=== PATIENT | male | born 1940 | race Caucasian/White ===

== ENCOUNTER 2016-05-25 18:02 | Emergency (ER) | payer OTHER ==
[~2016-05-25 18:02] MED LIST: ALBUTEROL0.09 MG/A1 INH; ALBUTEROL0.63 MG/3 INH/SOL; BUDESONIDE0.25 MG/2 INH/SOL; CARVEDILOL12.5 MG PO; DIGOXIN0.125 MG PO; FUROSEMIDE40 MG PO; LOSARTAN POTASS50 MG PO; OMEPRAZOLE20 MG PO; PREDNISONE10 M2 PO; PREDNISONE10 MG PO; PREDNISONE5 M1 PO; VITAMIN D50000 IU PO; WARFARIN SODIUM5 MG PO; ZITHROMAX250 M2 PO
--- NOTE | 2016-05-25 19:40 | ED GENERAL ADULT ---
History of Present Illness General Chief Complaint: Trunk Injury Stated Complaint: RIB PAIN, S/P FALL X 2 WEEK Source: patient Exam Limitations: no limitations Vital Signs & Intake/Output Vital Signs & Intake/Output Vital Signs Date Time Temp Pulse Resp B/P Pulse O2 O2 Flow FiO2 Ox Delivery Rate 05/25 2154 98.8 80 20 123/60 93 Nasal 2.0L Cannula Allergies Coded Allergies: NO KNOWN ALLERGIES (11/17/12) Reconcile Medications Acetaminophen (Tylenol Extra Strength) 500 MG TABLET 2 TAB PO PRN PAIN ( Reported) Albuterol Sulfate (Proair Hfa) 90 MCG HFA.AER.AD 2 PUF INH Q4-6 PRN PRN RESPIRATORY (Reported) Carvedilol 25 MG TABLET 0.5 TAB PO BID HEART/BP (Reported) Digoxin 125 MCG TABLET 1 TAB PO DAILY HEART (Reported) Ergocalciferol (Vitamin D2) (Vitamin D2) 50,000 UNIT CAPSULE 1 CAP PO Q2W SUPPLEMENT (Reported) Fluticasone Propionate 50 MCG/ACTUATION SPRAY.SUSP 2 SPRAY NASB DAILY ALLERGIES (Reported) Furosemide 40 MG TABLET 1 TAB PO DAILY DIURETIC (Reported) Hydrocodone/Acetaminophen (Purcell 5-325 Tablet) 5 MG-325 MG TABLET 1-2 TAB PO Q4-6 PRN PRN pain Omeprazole 20 MG CAPSULE. 1 CAP PO DAILY GI (Reported) Prednisone 5 MG TABLET 1 TAB PO DAILY RESPIRATORY (Reported) Warfarin Sodium 5 MG TABLET 1 TAB PO AD BLOOD THINNER (Reported) Warfarin Sodium (Coumadin) 10 MG TABLET 1 TAB PO AD BLOOD THINNER (Reported) Triage Note: TRIAGE; PT TO ED WITH BÁRBARA RIB PAIN. STATES HE FELL X1 MONTH AGO. DID NOT GET SEEN FOR IT, AND INJURED BOTH SIDES OF RIBS AT THAT TIME. HAD A CXR BY DR STEVENS X3 DAYS AGO, AND FOR THE CXR HAD TO LIFT HIS ARMS FOR ONE OF THE PICTURES AND SINCE THEN HAS BEEN HAVING BÁRBARA SIDED RIB PAIN. PT IS ON CHRONIC 02 AT 4L FOR COPD. PT REPORTS ABOUT 4 POUND WEIGHT GAIN TO HIS ABDOMEN OVER THE PAST MONTH WELL. DENIES ANY CP OR SOB AT THIS TIME. STATES HIS BREATHING HAS BEEN FINE FOR HIM. PTS RA SAT IS CURRENTLY 89% ON THE O2, STATES HE NORMALLY RUNS MID 90'S WITH HIS COPD. Triage Nurses Notes Reviewed? yes Onset: Gradual Duration: worse persistent since (3 days) Timing: no prior history Injury Environment: at dr office Severity: moderate Severity Numbers: 8 Modifying Factors: Improves With: immobilization. Worsens With: movement. HPI: Patient is a 76-year-old male history of COPD, on 4 L nasal cannula at nighttime and during the day when necessary presenting to the emergency department with chief complaint of right-sided rib pain worsening over the past 3 days. Reports that he fell 2 weeks ago and hit his ribs on a doorway. No head injury loss of consciousness. He reports that pain was moderate initially and then resolved. He noticed some bruising in the area as well as has improved. The other day he was at his doctor's office doing a chest x-ray and when he raises his right arm over his head he noticed increasing pain in the right rib area. Patient reporting shortness of breath slightly more than baseline. Has had uses these have oxygen more frequently over the past couple days. Movement seems to make the right rib pain worse. Also taking a deep breath makes it worse. Denies any nausea or vomiting or fevers or chills. He does report an intermittently productive cough of clear sputum. (MABEL CEJA) Past History Travel History Traveled to [place] past 21 day No Medical History Any Pertinent Medical History? see below for history Neurological: NONE EENT: NONE Cardiovascular: aortic aneurysm, CHF, hypertension, DEFIB LCW Respiratory: COPD Gastrointestinal: GERD Hepatic: NONE Renal: NONE Musculoskeletal: osteoarthritis Psychiatric: NONE Endocrine: NONE Blood Disorders: NONE Cancer(s): NONE PORTER BAGGAGE/Reproductive: NONE History of MRSA: No History of VRE: No History of CDIFF: No Surgical History Surgical History: non-contributory, N Psychosocial History Who do you live with Daughter Services at Home Oxygen What is your primary language Welsh Tobacco Use: Never used Family History Family History, If Any: MOTHER (STROKES). SISTER (BREAST CA). Hx Contributory? No (MABEL CEJA) Review of Systems Review of Systems Constitutional: Reports: see HPI. Comments Review of systems: See HPI, All other systems negative. Constitutional, no chills fever or weight loss HEENT: No visual changes no sore throat no congestion Cardiovascular: No palpitation , orthopnea or ankle swelling Skin, no jaundice no rashes Respiratory: No hemoptysis GI: No nausea no vomiting : No dysuria No hematuria Muscle skeletal: no back pain, no neck pain, Neurologic: No numbness no confusion Psych: No stress anxiety or depression,. Heme/endocrine: No bruising no bleeding no polyuria or polydipsia Immunology: No splenectomy or history of AIDS (ESTEBAN MOORE,MABEL) Physical Exam Physical Exam General Appearance: well developed/nourished, no apparent distress, alert, awake , comfortable Comments: Well-developed well-nourished person in no acute distress HEENT: extraocular motion intact, no nystagmus. Pupils equally round and reactive to light and accommodation. Nose is atraumatic. External auditory canal and Tympanic membranes clear. Pharynx normal. No swelling or edema. Neck: Supple, no lymphadenopathy, normal range of motion without pain or tenderness, no C-spine tenderness. Back: Nontender, no central tenderness. Mild tenderness to palpation over the right lateral ribs/right flank. Cardiovascular: Regular rate and rhythms no murmurs rubs or gallops, normal JVP Respiratory: Mildly tender to palpation over the right lateral ribs. No respiratory distress.breath sounds slightly diminished to auscultation bilaterally at the bases with mild wheezing. no signs of bruising over this area. Abdomen: Soft, nontender nondistended, no appreciable organomegaly. Normal bowel sounds. No ascites Extremity: No edema, no calf tenderness to palpation, normal and equal pulses. Neuro: Alert oriented x3, motor sensory normal, cranial nerves II through XII grossly intact. Skin: No appreciable rash on exposed skin, skin is warm and dry. Psych: Mood and affect is normal, memory and judgment is normal. Core Measures ACS in differential dx? Yes CVA/TIA Diagnosis: No Severe Sepsis Present: No Septic Shock Present: No (MABEL CEJA) Progress Differential Diagnoses I considered the following diagnoses in my evaluation of the patient: Rib fracture, pleural effusion, pneumothorax, COPD exacerbation, pulmonary embolus, ACS Plan of Care: Current Medications Sig/Anette Start time Last Medication Dose Stop Time Status Admin Morphine Sulfate 2 MG ONCE ONE 05/25 2029 CAN (Morphine) 05/25 2030 Diagnostic Imaging: Viewed by Me: CT Scan. Discussed w/RAD: CT Scan. Radiology Impression: PATIENT: DAMARIS PERRY PRESENT AGE: 76 PATIENT ACCOUNT NO: [id number] : 40 LOCATION: [facility] ORDERING PHYSICIAN: MABEL MOORE SERVICE DATE: 05/25/16 EXAM TYPE: CAT - CTA CHEST-PULMONARY EMBOLISM EXAMINATION: CT ANGIOGRAM OF THE CHEST WITH AND WITHOUT CONTRAST (CT PULMONARY ANGIOGRAM FOR PE) CLINICAL INFORMATION: Chest pain and hypoxia. Evaluate for pulmonary embolism. COMPARISON: CTA chest 08/22/2013. TECHNIQUE: Prior to contrast administration, noncontrast localization images were obtained. Subsequently, multidetector volumetric imaging was performed from the thoracic inlet to below the diaphragms following the administration of 114 mL Optiray 350 intravenous contrast. No contrast reaction reported. Sagittal, coronal, and MIP oblique sagittal reformatted images were obtained on the CT workstation, uploaded to PACS, and reviewed. Total exam dose-length product 654 mGy-cm FINDINGS: QUALITY OF STUDY/CONTRAST BOLUS: Adequate contrast opacification of the pulmonary arterial vasculature. PULMONARY ARTERIES: No evidence of pulmonary embolism to the level of the subsegmental pulmonary arteries. No large central pulmonary emboli. THORACIC AORTA: Scattered atherosclerosis of the thoracic aorta, without aneurysmal dilatation. Scattered coronary artery calcifications. No centrally displaced intraluminal flaps to suggest aortic dissection. LUNG: Evaluation of the lung parenchyma is notable for advanced bilateral centrilobular emphysematous changes , notably within the bilateral upper lobes. There is minimal dependent bibasilar subsegmental atelectasis. No suspicious pulmonary nodules or masses are identified. The central trachea is patent, without endobronchial obstructing lesions. PLEURA: No pleural effusions or pneumothoraces. MEDIASTINUM: Normal heart size, without significant pericardial effusion. Normal three-vessel branching of the aortic arch. Normal caliber of the thoracic aorta and main pulmonary artery. No significant mediastinal or hilar adenopathy. No evidence of septal bowing or right heart strain. CHEST WALL/AXILLA: No axillary or internal mammary lymphadenopathy. Left chest wall AICD. OSSEOUS STRUCTURES: No acute osseous abnormality. Normal alignment of the imaged thoracic spine. No visible destructive osseous lesions involving the thoracic vertebral bodies. UPPER ABDOMEN: Please refer to a similarly dated CT of the abdomen and pelvis for further details. No reflux of contrast into the hepatic veins to suggest elevated right heart pressures. IMPRESSION: 1. Adequate contrast opacification of the pulmonary arterial vasculature, without evidence of pulmonary embolism to the left of the subsegmental pulmonary arteries. 2. No centrally displaced intraluminal flaps in the thoracic aorta to suggest acute thoracic aortic dissection. 3. Advanced bilateral centrilobular emphysematous changes. Minimal dependent bibasilar atelectasis. No focal airspace consolidation to suggest infection. VTE: Negative. DICTATED BY: CHASE SYED MD DATE/TIME DICTATED:12/03 LADLE REPAIRMAN:LAKHWINDER DATE/TIME TRANSCRIBED:05/25/162200 CONFIDENTIAL, DO NOT COPY WITHOUT APPROPRIATE AUTHORIZATION. <Electronically signed in Other Vendor System> SIGNED BY: CHASE SYED MD , ct ab: increase in abdominal aneurysm, no acute pathology Initial ED EKG: NSR Prior EKG: unchanged Comments: Ambulatory oxygenation saturation with 2 L remains about 93%. Patient will without difficulty. Patient will be discharged home with pain medication prescription. No pulmonary unless on CTA. Likely COPD exacerbation. No signs of rib fracture. This could definitely be a rib contusion. He has an incentive spirometer at home. (MABEL CEJA) Departure Departure Time of Disposition: 2330 Disposition: HOME OR SELF CARE Condition: Stable Clinical Impression Primary Impression: Rib injury Referrals: PROSPER CASAS MD (PCP/Family) Additional Instructions: Follow-up with your primary care physician within the next 24-48 hours. Return for worsening symptoms or concerns. Take Vicodin as prescribed for pain. use Incentive spirometer as directed. Departure Forms: Customer Survey General Discharge Information Prescriptions: Current Visit Scripts Hydrocodone/Acetaminophen (Purcell 5-325 Tablet) 1-2 TAB PO Q4-6 PRN PRN pain #10 TAB (MABEL CEJA) PA/BARGE ENGINEER Co-Sign Statement Statement: ED Attending supervision documentation- X I saw and evaluated the patient. I have also reviewed all the pertinent lab results and diagnostic results. I agree with the findings and the plan of care as documented in the PA's/BARGE ENGINEER's documentation. [] I have reviewed the ED Record and agree with the PA's/BARGE ENGINEER's documentation. [] Additions or exceptions (if any) to the PAs/BARGE ENGINEER's note and plan are summarized below: [] (MAGDIEL NÚÑEZ,KVNG) Critical Care Note Critical Care Note Critical Care Time: non-applicable (MABEL CEJA)
[2016-05-25 20:27] LABS: ABSOLUTE BASOPHIL COUNT 0.1 /CUMM (0.0-0.2); ABSOLUTE EOSINOPHIL COUNT 0.2 /CUMM (0.0-0.7); ABSOLUTE LYMPH COUNT 1.3 /CUMM (1.2-3.4); ABSOLUTE MONOCYTE COUNT 0.8 /CUMM (0.10-0.60); BASOPHIL % 1.2 % (0.0-2.0); EOSINOPHIL % 1.7 % (0-5); GRANULOCYTE % 76.7 % (42.2-75.2); HEMATOCRIT 36.9 % (42-52); MEAN CORPUSCULAR HGB 29.2 PG (27.0-31.0); MEAN CORPUSCULAR HGB CONC 32.8 G/DL (33.0-37.0); MEAN CORPUSCULAR VOLUME 89.2 FL (80.0-94.0); MEAN PLATELET VOLUME 7.6 FL (7.4-10.4); PLATELET COUNT 202 /CUMM (130-400); RBC DISTRIBUTION WIDTH 15.6 % (11.5-14.5); RED BLOOD CELL CT 4.14 /CUMM (4.70-6.10); WHITE BLOOD CELL COUNT 10.4 /CUMM (4.8-10.8)
[2016-05-25] MEDS ORDERED: DIGOXIN125 MCG PO (20:56)
[2016-05-25] MEDS ORDERED: WARFARIN SODIUM5 M1 PO (20:56)
[2016-05-25] MEDS ORDERED: COUMADIN10 M1 PO (20:57)
[2016-05-25] MEDS ORDERED: VITAMIN D250000 UNIT PO (20:57)
[2016-05-25] MEDS ORDERED: FUROSEMIDE40 M1 PO (20:58)
[2016-05-25] MEDS ORDERED: CARVEDILOL25 M1 PO (20:59)
[2016-05-25] MEDS ORDERED: PREDNISONE5 M1 PO (21:00)
[2016-05-25] MEDS ORDERED: OMEPRAZOLE20 M2 PO (21:00)
[2016-05-25] MEDS ORDERED: FLUTICASONE PRO16 GM NASB (21:01)
[2016-05-25] MEDS ORDERED: PROAIR HFA8.5 GM INH (21:01)
[2016-05-25] MEDS ORDERED: TYLENOL EXTRA500 M2 PO (21:02)
[2016-05-25 21:54] VITALS: BP 123/60
--- NOTE | 2016-05-25 22:10 | CT SCAN REPORT ---
EXAMINATION: CT ANGIOGRAM OF THE CHEST WITH AND WITHOUT CONTRAST (CT PULMONARY ANGIOGRAM FOR PE) CLINICAL INFORMATION: Chest pain and hypoxia. Evaluate for pulmonary embolism. COMPARISON: CTA chest 08/22/2013. TECHNIQUE: Prior to contrast administration, noncontrast localization images were obtained. Subsequently, multidetector volumetric imaging was performed from the thoracic inlet to below the diaphragms following the administration of 114 mL Optiray 350 intravenous contrast. No contrast reaction reported. Sagittal, coronal, and MIP oblique sagittal reformatted images were obtained on the CT workstation, uploaded to PACS, and reviewed. Total exam dose-length product 654 mGy-cm FINDINGS: QUALITY OF STUDY/CONTRAST BOLUS: Adequate contrast opacification of the pulmonary arterial vasculature. PULMONARY ARTERIES: No evidence of pulmonary embolism to the level of the subsegmental pulmonary arteries. No large central pulmonary emboli. THORACIC AORTA: Scattered atherosclerosis of the thoracic aorta, without aneurysmal dilatation. Scattered coronary artery calcifications. No centrally displaced intraluminal flaps to suggest aortic dissection. LUNG: Evaluation of the lung parenchyma is notable for advanced bilateral centrilobular emphysematous changes, notably within the bilateral upper lobes. There is minimal dependent bibasilar subsegmental atelectasis. No suspicious pulmonary nodules or masses are identified. The central trachea is patent, without endobronchial obstructing lesions. PLEURA: No pleural effusions or pneumothoraces. MEDIASTINUM: Normal heart size, without significant pericardial effusion. Normal three-vessel branching of the aortic arch. Normal caliber of the thoracic aorta and main pulmonary artery. No significant mediastinal or hilar adenopathy. No evidence of septal bowing or right heart strain. CHEST WALL/AXILLA: No axillary or internal mammary lymphadenopathy. Left chest wall AICD. OSSEOUS STRUCTURES: No acute osseous abnormality. Normal alignment of the imaged thoracic spine. No visible destructive osseous lesions involving the thoracic vertebral bodies. UPPER ABDOMEN: Please refer to a similarly dated CT of the abdomen and pelvis for further details. No reflux of contrast into the hepatic veins to suggest elevated right heart pressures. IMPRESSION: 1. Adequate contrast opacification of the pulmonary arterial vasculature, without evidence of pulmonary embolism to the left of the subsegmental pulmonary arteries. 2. No centrally displaced intraluminal flaps in the thoracic aorta to suggest acute thoracic aortic dissection. 3. Advanced bilateral centrilobular emphysematous changes. Minimal dependent bibasilar atelectasis. No focal airspace consolidation to suggest infection. VTE: Negative.
--- NOTE | 2016-05-25 22:24 | CT SCAN REPORT ---
EXAMINATION: CT ABDOMEN AND PELVIS WITH CONTRAST CLINICAL INFORMATION: Weight gain. Evaluate for intra-abdominal ascites. COMPARISON: Aortic ultrasound 06/17/2012. CT abdomen 06/06/2006. TECHNIQUE: Multidetector volumetric imaging was performed of the abdomen and pelvis before and after the IV administration of 114 mL of Optiray 320 intravenous contrast. Sagittal and coronal reformatted images were obtained on the technologist's workstation. DLP: 654 mGy-cm FINDINGS: LUNG BASES: Please refer to a similarly dated CTA of the chest for further details regarding the chest. LIVER, GALLBLADDER, AND BILIARY TREE: The liver is normal in size, shape and attenuation. Redemonstrated are multiple hypoattenuating lesions scattered throughout the right and left hepatic lobes. This lesions are too small to further characterize but may represent multiple small hepatic cysts. No intrahepatic or extrahepatic biliary ductal dilatation is identified. The gallbladder is distended, without visible gallstones, gallbladder wall thickening or pericholecystic inflammatory changes. PANCREAS: Identified is a hypoattenuating lesion within the head and uncinate process of the pancreas measuring approximately 1.8 x 2.8 cm. This lesion is incompletely characterized on this examination but could reflect a pancreatic cyst or side branch PMN. A benign or neoplastic cystic neoplasm of the pancreas cannot be entirely excluded. SPLEEN: There are several small splenules. The spleen otherwise appears unremarkable. ADRENAL GLANDS: Unremarkable. KIDNEYS AND URETERS: Evaluation of the bilateral kidneys and renal collecting systems is notable for several bilateral simple renal cortical cysts which are visualized measuring up to 1.6 cm along the midpole of the left kidney. There is limited evaluation for nephrolithiasis of the bilateral kidney secondary to the presence of excreted contrast within the urinary collecting systems. The left kidney is atrophic relative to the right kidney. There is no hydronephrosis of either kidney. BLADDER: Unremarkable. GASTROINTESTINAL TRACT: Evaluation of the gastrointestinal system is notable for a moderate to significant amount of retained stool throughout the colon, indicative of constipation. Stool burden is most significant within the cecum and ascending colon. There are multiple air-filled loops of small and large bowel throughout the abdomen. Abdominal and pelvic bowel loops are otherwise normal in caliber, without findings indicative of small bowel obstruction or ileus. No organizing intra-abdominal pelvic fluid collections are identified and there is no free intraperitoneal air. A normal-appearing appendix is present within the right hemiabdomen. ABDOMINAL WALL: No significant hernia is appreciated. LYMPH NODES: No significant abdominal or pelvic adenopathy. VASCULAR: Scattered atherosclerosis of the abdominal aorta and its branching vessels. Aneurysmal dilatation of the infrarenal abdominal aorta, with the aneurysm sac visualized measuring approximately 4.0 x 4.4 cm in AP and transverse dimensions respectively and spanning approximately 7 cm in length. The infrarenal abdominal aorta previously had a maximum diameter of 3.5 cm in transverse dimension on a prior ultrasound of the abdominal aorta dating back to 06/17/2012. There is scattered atherosclerosis of the abdominal aorta and its branching vessels. These vessels are otherwise patent and opacified by intravenous contrast. PELVIC VISCERA: Prominent prostate gland measuring approximately 4.4 x 5.6 cm in AP and transverse dimensions respectively. OSSEOUS STRUCTURES: Demineralization of the visualized bones. No acute osseous abnormality. No visible destructive osseous lesions. IMPRESSION: 1. No acute findings within the abdomen or pelvis to explain patient symptomatology. 2. Moderate fecal retention with stool identified predominantly within the cecum and ascending colon, indicative of constipation. There are multiple air filled loops of small and large bowel throughout the abdomen and pelvis, without evidence of small bowel obstruction or ileus. No intra-abdominal ascites is identified. 3. Newly identified is a 1.8 x 2.8 cm hypoattenuating lesion in the region of the head and uncinate process of the pancreas. This could represent a small pancreatic cysts or side banch IPMN although a benign or malignant cystic neoplasm cannot be entirely excluded. A nonemergent, outpatient contrast-enhanced CT of the abdomen may be obtained for further characterization (pancreatic mass protocol). 4. Aneurysmal dilatation of the infrarenal abdominal aorta which is visualized measuring 4.0 x 4.4 cm in AP and transverse dimensions respectively and spanning approximately 7 cm in length; previously, 3.4 x 3.5 cm in AP and transverse dimensions respectively.
[2016-05-25] MEDS ORDERED: NORCO 5-325 TA1 EACH PO (23:33)
== END 2016-05-25 23:44 ==
LOC: ERH 18:02
PROVIDERS: Physician Assistant
DX: S29.9XXA Unspecified injury of thorax, initial encounter (principal); R07.81 Pleurodynia; W19.XXXA Unspecified fall, initial encounter; Y93.9 Activity, unspecified; Y92.9 Unspecified place or not applicable
CPT/HCPCS: 1263; 74177; 93005; 93010; 96374; J2930